=== PATIENT | female | born 1990 | race Hispanic/Latino ===

== ENCOUNTER 2025-05-27 15:33 | Emergency (ER) | payer OTHER ==
[~2025-05-27] VITALS: Ht 134.6 cm; Wt 83.1 kg
[2025-05-27] MEDS: LIDOCAINE HCL 1% LOCAL INJ 20 ML VIAL INJ ONE (16:35)
[2025-05-27] MEDS: TETANUS/DIPHTHERIA TOX ADULT 0.5 ML SYR IM ONE (16:36)
[2025-05-27] MEDS ORDERED: CEPHALEXIN500 MG PO (16:37)
[2025-05-27] MEDS ORDERED: ACETAMINOPHEN-1 EAC4 PO (16:37)
[2025-05-27] MEDS ORDERED: NAPROXEN500 MG PO (16:51)
[2025-05-27 17:06] VITALS: PULSE 95; RESP 18; TEMP 98.5; O2SAT 100
== END 2025-05-27 17:09 | disposition home or self-care (01) ==
LOC: FSED 15:36
DX: S61.032A Puncture wound without foreign body of left thumb without damage to nail, initial encounter (principal); L02.512 Cutaneous abscess of left hand
CPT/HCPCS: 10060; 73140; 90471; 90714; 99284; J2003